=== PATIENT | male | born 1980 | race Two or more races ===

== ENCOUNTER 2022-01-18 06:20 | Emergency (ER) | payer OTHER ==
[~2022-01-18] VITALS: Ht 188 cm; Wt 99.8 kg
== END 2022-01-18 10:16 | disposition home or self-care (01) ==
LOC: ER 06:20
DX: S90.121A Contusion of right lesser toe(s) without damage to nail, initial encounter (principal); X58.XXXA Exposure to other specified factors, initial encounter; Y93.89 Activity, other specified; Y92.9 Unspecified place or not applicable; Y99.9 Unspecified external cause status